=== PATIENT | female | born 1960 | race Caucasian/White ===

== ENCOUNTER 2019-11-27 11:54 | Emergency (ER) | payer MEDICAID, OTHER ==
[~2019-11-27] VITALS: Ht 157.5 cm; Wt 45.0 kg
[~2019-11-27 11:54] MED LIST: ASPI-1265 PO; DEXL60CA3 PO; EST1T PO; IBUP-1984 PO; ONDA4TAB9 PO; ONDA8TAB9 PO; PRO2.5T PO
[2019-11-27 12:26] LABS: BASOPHILS # (AUTO) 0.1 X10'3 (0-0.2); BASOPHILS % (AUTO) 0.7 % (0-1); EOSINOPHILS % (AUTO) 0 % (0-6); HEMATOCRIT 43.9 % (35.0-45.0); HEMOGLOBIN 14.8 g/dl (12.0-16.0); LYMPHOCYTES # (AUTO) 1.8 X10'3 (1.1-4.8); LYMPHOCYTES % (AUTO) 14.6 % (21-51); MEAN CORPUSCULAR HEMOGLOBIN 30.7 PG (27.0-31.0); MEAN CORPUSCULAR HGB CONC 33.6 g/dL (33.0-36.5); MEAN CORPUSCULAR VOLUME 91.4 FL (78-98); MEAN PLATELET VOLUME 7.4 FL (7.4-10.4); MONOCYTES # (AUTO) 0.7 X10'3 (0-0.9); NEUTROPHILS # (AUTO) 9.6 X10'3 (1.8-7.7); NEUTROPHILS % (AUTO) 78.7 % (42-75); PLATELET COUNT 448 X10'3 (140-440); RED CELL DISTRIBUTION WIDTH 13.3 % (11.5-14.5); WHITE BLOOD COUNT 12.2 X10'3 (4.5-11.0)
[2019-11-27 12:41] LABS: ALANINE AMINOTRANSFERASE 19 U/L (12-78); ALBUMIN 3.8 G/DL (3.4-5.0); ALBUMIN/GLOBULIN RATIO 0.9 (1.1-1.5); ALKALINE PHOSPHATASE 80 IU/L (46-116); ANION GAP 12 (8-16); ASPARTATE AMINO TRANSFERASE 19 U/L (10-37); BILIRUBIN,TOTAL 0.4 MG/DL (0.1-1.0); BLOOD UREA NITROGEN 15 MG/DL (7-18); BUN/CREATININE RATIO 15.5 (6.6-38.0); CALCIUM 10.1 MG/DL (8.5-10.1); CHLORIDE 100 MMOL/L (99-107); CREATININE 0.97 MG/DL (0.40-0.90); GLUCOSE 107 MG/DL (70-104); LIPASE 146 U/L (73-393); POTASSIUM 3.7 MMOL/L (3.5-5.1); SODIUM 138 MMOL/L (135-145); TOTAL CARBON DIOXIDE 25.9 MMOL/L (24-32); TOTAL PROTEIN 8.2 G/DL (6.4-8.2); eGFR 58 ML/MIN
[2019-11-27] MEDS ORDERED: pantoprazole 40 MG vial IV ONE (12:50)
[2019-11-27] MEDS ORDERED: ondansetron/PF 4mg/2ml inj IV ONE (12:50)
[2019-11-27] MEDS ORDERED: normal saline 1000ML IV soln IVB ONE (12:50)
[2019-11-27 15:04] LABS: CLARITY,URINE CLEAR (Clear); COLOR,URINE STRAW (Yellow); GLUCOSE, URINE NEGATIVE (Neg); KETONES,URINE 15 mg/dl (Neg); LEUKOCYTE ESTERASE ,URINE NEGATIVE (Neg); NITRITES, URINE NEGATIVE (Neg); OCCULT BLOOD,URINE MODERATE (Neg); PH,URINE 7.5 (4.8-8.0); PROTEIN,URINE NEGATIVE (Neg); UROBILINOGEN,URINE 0.2 E.U/dL (0.2-1.0)
[2019-11-27 15:07] LABS: UA COLLECTION TYPE CLN CATCH MIDSTREAM
[2019-11-27 15:14] LABS: BACTERIA,URINE FEW /HPF (Neg); MUCUS STRANDS NONE SEEN /LPF (Neg); SQUAMOUS EPITHELIAL CELL,UR FEW /LPF (FEW); WBC,URINE 0-4 /HPF (0-4)
[2019-11-27 15:57] VITALS: BP 130/82
[2019-11-27] MEDS ORDERED: ONDA4TAB6 PO (16:27)
[2019-11-27] MEDS ORDERED: FAMO10TA41 PO (16:27)
[2019-11-27] MEDS ORDERED: MISO100T47 PO (16:27)
== END 2019-11-27 17:22 | disposition home or self-care (01) ==
LOC: ER 11:55
DX: R10.12 Left upper quadrant pain (principal); R11.2 Nausea with vomiting, unspecified; K21.9 Gastro-esophageal reflux disease without esophagitis; F41.9 Anxiety disorder, unspecified; F32.9 Major depressive disorder, single episode, unspecified; F17.200 Nicotine dependence, unspecified, uncomplicated; Z98.890 Other specified postprocedural states; Z88.2 Allergy status to sulfonamides; Z79.82 Long term (current) use of aspirin; Z79.899 Other long term (current) drug therapy
CPT/HCPCS: 36415; 71045; 74176; 80053; 81001; 83690; 85025; 93005; 96361; 96374; 96375; 99285; C9113; J2405; J7030

== ENCOUNTER 2021-08-16 11:11 | Inpatient (IN) | payer MEDICAID ==
[~2021-08-16] VITALS: Ht 157.5 cm; Wt 49.0 kg
[~2021-08-16 11:11] MED LIST changes: +FAMO10TA41 PO; +MISO100T42 PO; +ONDA4TAB6 PO
[2021-08-16] MEDS ORDERED: normal saline 1000ML IV soln IV ONE (11:35)
--- NOTE | 2021-08-16 11:36 | NUR ---
PATIENT TESTED POSITIVE FOR COVID ON 08/13/21 AT PCP OFFICE. PATIENT WAS PRESCRIBED PREDNISONE 20 MG X 5 DAYS, GUIFEN WITH CODEINE SYRUP, AND TESSALON PERLES.
[2021-08-16 12:29] LABS: BASOPHILS % (AUTO) 0.1 % (0-1); EOSINOPHILS % (AUTO) 0 % (0-6); HEMATOCRIT 42.1 % (35.0-45.0); HEMOGLOBIN 14.4 g/dl (12.0-16.0); LYMPHOCYTES # (AUTO) 0.1 X10'3 (1.1-4.8); LYMPHOCYTES % (AUTO) 1.2 % (21-51); MEAN CORPUSCULAR HEMOGLOBIN 31.6 PG (27.0-31.0); MEAN CORPUSCULAR HGB CONC 34.2 g/dL (33.0-36.5); MEAN CORPUSCULAR VOLUME 92.2 FL (78-98); MEAN PLATELET VOLUME 8.3 FL (7.4-10.4); MONOCYTES # (AUTO) 0.5 X10'3 (0-0.9); MONOCYTES % (AUTO) 3.9 % (2-12); NEUTROPHILS # (AUTO) 11.6 X10'3 (1.8-7.7); NEUTROPHILS % (AUTO) 94.8 % (42-75); PLATELET COUNT 183 X10'3 (140-440); RED BLOOD COUNT 4.56 X10'6 (4.20-5.60); RED CELL DISTRIBUTION WIDTH 13.3 % (11.5-14.5); WHITE BLOOD COUNT 12.2 X10'3 (4.5-11.0)
--- NOTE | 2021-08-16 12:30 | NUR ---
PATIENT RESTING IN WC WITH FAMILY PRESENT. O2 SAT 93-94% ON ROOM AIR. IV FLUIDS INFUSING WELL.
[2021-08-16 12:43] LABS: D-DIMER 0.31 MG/L FEU (0-0.50)
[2021-08-16 12:46] LABS: ALANINE AMINOTRANSFERASE 23 U/L (12-78); ALBUMIN/GLOBULIN RATIO 0.6 (1.1-1.5); ALKALINE PHOSPHATASE 71 IU/L (46-116); ANION GAP 10 (8-16); ASPARTATE AMINO TRANSFERASE 22 U/L (10-37); BILIRUBIN,TOTAL 0.5 MG/DL (0.1-1.0); BLOOD UREA NITROGEN 9 MG/DL (7-18); BUN/CREATININE RATIO 14.3 (6.6-38.0); CALCIUM 9.2 MG/DL (8.5-10.1); CHLORIDE 94 MMOL/L (99-107); CREATININE 0.63 MG/DL (0.40-0.90); GLUCOSE 119 MG/DL (70-104); POTASSIUM 4.3 MMOL/L (3.5-5.1); SODIUM 129 MMOL/L (135-145); TOTAL CARBON DIOXIDE 25.5 MMOL/L (24-32); TOTAL PROTEIN 7.8 G/DL (6.4-8.2); eGFR > 90 ML/MIN
[2021-08-16] MEDS ORDERED: normal saline 1000ML IV soln IVB ONE (13:20)
[2021-08-16] MEDS ORDERED: GUAI120L55 PO (14:05)
[2021-08-16] MEDS ORDERED: CALC-1276 PO (14:05)
[2021-08-16] MEDS ORDERED: PRED20TA PO (14:05)
[2021-08-16] MEDS ORDERED: BENZ-49 PO (14:05)
[2021-08-16] MEDS ORDERED: ALBU18HF2 PO (14:06)
[2021-08-16] MEDS ORDERED: ESCI20TA39 PO (14:06)
[2021-08-16] MEDS: dexamethasone sod phosphate 10mg/ml inj IV STA ×2 (14:16→16:00)
[2021-08-16] MEDS ORDERED: potassium Cl 20 mEq SR tablet PO PRN ×2 (15:10)
[2021-08-16] MEDS ORDERED: magnesium Cl slow-release 64mg tablet PO PRN (15:10)
[2021-08-16] MEDS ORDERED: magnesium 2GM in 50ml NS 50 ML IV PRN (15:10)
[2021-08-16] MEDS ORDERED: acetaminophen 325mg tablet PO PRN ×2 (15:10→17:40)
[2021-08-16] MEDS ORDERED: potassium Cl 40MEQ/1/2NS 520ml 520 ML IV PRN ×2 (15:10)
[2021-08-16] MEDS ORDERED: ondansetron/PF 4mg/2ml inj IV PRN (15:10)
[2021-08-16] MEDS ORDERED: magnesium 4gm in 100ml NS 100 ML IV PRN (15:10)
[2021-08-16 15:33] LABS: LACTATE DEHYDROGENASE 225 U/L (81-234)
--- NOTE | 2021-08-16 16:13 | NUR ---
received report from Kanchan CARNES and assumed care of pt. Pt A&O x4. No s/s of distress noted.
[2021-08-16 16:38] VITALS: BP 124/68
[2021-08-16] MEDS: normal saline 1000ml 1,000 ML IV SCH (18:00)
--- NOTE | 2021-08-16 18:41 | NUR ---
Patient in room ORTHO 4013. I have received report from Jaja CARNES and had the opportunity to ask questions and assume patient care.
[2021-08-16] MEDS: K and/or MAG REPLACEMENT MC SCH (19:14)
[2021-08-16] MEDS ORDERED: temazepam 15mg capsule PO PRN (21:00)
[2021-08-16 22:00] VITALS: BP 109/63
[2021-08-17 02:16] VITALS: BP 102/66
[2021-08-17] MEDS: normal saline 1000ml 1,000 ML IV SCH ×2 (04:44→11:54)
--- NOTE | 2021-08-17 06:11 | NUR ---
Problems reprioritized. Patient report given, questions answered & plan of care reviewed with Lakisha CARNES.
[2021-08-17 06:22] VITALS: BP 121/79
--- NOTE | 2021-08-17 06:33 | NUR ---
Patient in room ORTHO 4013. I have received report from Bri CARNES and had the opportunity to ask questions and assume patient care.
--- NOTE | 2021-08-17 07:27 | NUR ---
PAGER ID: [phone] MESSAGE: [phone], Alma please address med rec. Also not on any anticoagulants, COVID positive. thanks [email or web address] [id number]
[2021-08-17] MEDS ORDERED: enoxaparin 40mg/0.4ml syringe SUBCUT ONE (07:35)
[2021-08-17] MEDS: K and/or MAG REPLACEMENT MC SCH (08:00)
[2021-08-17] MEDS ORDERED: DEXAMETHASONE 6 MG TABLET PO SCH (08:00)
[2021-08-17 08:15] LABS: BASOPHILS % (AUTO) 0.1 % (0-1); EOSINOPHILS % (AUTO) 0 % (0-6); HEMATOCRIT 40.2 % (35.0-45.0); HEMOGLOBIN 13.7 g/dl (12.0-16.0); LYMPHOCYTES # (AUTO) 0.2 X10'3 (1.1-4.8); LYMPHOCYTES % (AUTO) 2.6 % (21-51); MEAN CORPUSCULAR HGB CONC 34.2 g/dL (33.0-36.5); MEAN CORPUSCULAR VOLUME 93.7 FL (78-98); MEAN PLATELET VOLUME 8.5 FL (7.4-10.4); MONOCYTES # (AUTO) 0.5 X10'3 (0-0.9); MONOCYTES % (AUTO) 5.5 % (2-12); NEUTROPHILS # (AUTO) 8.3 X10'3 (1.8-7.7); NEUTROPHILS % (AUTO) 91.8 % (42-75); PLATELET COUNT 170 X10'3 (140-440); RED BLOOD COUNT 4.28 X10'6 (4.20-5.60); RED CELL DISTRIBUTION WIDTH 13.4 % (11.5-14.5); WHITE BLOOD COUNT 9.1 X10'3 (4.5-11.0)
[2021-08-17 08:17] LABS: D-DIMER 0.49 MG/L FEU (0-0.50)
[2021-08-17 08:36] LABS: ALBUMIN 2.4 G/DL (3.4-5.0); ANION GAP 10 (8-16); BLOOD UREA NITROGEN 10 MG/DL (7-18); CALCIUM 8.4 MG/DL (8.5-10.1); CHLORIDE 107 MMOL/L (99-107); GLUCOSE 123 MG/DL (70-104); MAGNESIUM 2.1 MG/DL (1.5-2.4); POTASSIUM 3.6 MMOL/L (3.5-5.1); SODIUM 142 MMOL/L (135-145); TOTAL CARBON DIOXIDE 24.8 MMOL/L (24-32); eGFR > 90 ML/MIN
--- NOTE | 2021-08-17 09:00 | NUR ---
O2 Sat at rest on room air:__86_% If below 89%: Recovery O2 Sat at rest on _3__LPM:_95__%:___% via nasal cannula (mask/nasal cannula, etc..) No further documentation is necessary. If O2 Sat did not drop below 89% on room air,ambulate patient on room air. O2 Sat while ambulating on room air:___% Recovery O2 Sat while ambulating on ___LPM:___% No further documentation is necessary. If patient does not drop below 89% while ambulating, he/she does not qualify for home O2.
--- NOTE | 2021-08-17 09:04 | NUR ---
Gave patient IS and Flutter and instructed on use.
[2021-08-17] MEDS ORDERED: DEXA6TAB PO (09:07)
--- NOTE | 2021-08-17 10:12 | NUR ---
PAGER ID: [phone] MESSAGE: [phone], Alma patient lives alone, and daughter now is positive with covid. Home health maybe? [email or web address] [phone]
[2021-08-17 10:22] VITALS: BP 109/60
--- NOTE | 2021-08-17 11:36 | NUR ---
Malnutrition consult: Pt reports 14-23 lb wt loss with decreased appetite per malnutrition risk screen with RN. Per ED report symptoms of SOB, body aches, and decreased appetite started a week [employer]. Most recent scaled wt hx in EMR is 46.9 kg taken 06/08/17, though more recently with reported wt h/o 45 kg 11/27/2019. Current documented wt is +4 kg from reported wt hx. Pt on a regular diet documented with 25% PO intake x 2 meals. Pt with no documented significant decrease in muscle strength or edema. Pt currently lacks a minimum of two criteria for malnutrition. Will continue to follow closely and further monitor qualifying criteria. Addendum: 08/17/21 at [address] Amended: Links added.
--- NOTE | 2021-08-17 14:15 | NUR ---
Patient discharged to home in stable condition, 20 gauge iv removed from left ac, cannula intact no s/s of phlebitis. Gave discharge instructions to patient including isolation time, where to buy a pulse oximeter, medications, and importance of staying hydrated and eating appropriately. Patient was set up with home oxygen by maikel and home health is to be arranged with case management. Left in private vehicle with daughter with no complications.
[2021-08-18] MEDS ORDERED: enoxaparin 40mg/0.4ml syringe SUBCUT SCH (20:00)
== END 2021-08-17 14:05 | disposition home health service (06) | DRG 137 ==
LOC: ER 11:13 → ED HOLD 15:13 → ORTHO 4S 16:40
PROVIDERS: ADMIT Internal Medicine; ATTEND Internal Medicine
DX: U07.1 COVID-19 (principal); J96.00 Acute respiratory failure, unspecified whether with hypoxia or hypercapnia; J12.82 Pneumonia due to coronavirus disease 2019; F32.A Depression, unspecified; F41.9 Anxiety disorder, unspecified; K21.9 Gastro-esophageal reflux disease without esophagitis; E87.1 Hypo-osmolality and hyponatremia; Z87.891 Personal history of nicotine dependence; Z79.1 Long term (current) use of non-steroidal anti-inflammatories (NSAID); Z79.899 Other long term (current) drug therapy; Z88.2 Allergy status to sulfonamides; Z87.01 Personal history of pneumonia (recurrent)
CPT/HCPCS: 36415; 71045; 80048; 80053; 83605; 83615; 83735; 84145; 85025; 85379; 86140; 87040; 87081; 93005; 96374; 99285; G0378; J1100; J1650; J7030; J8540

== ENCOUNTER 2022-04-14 11:03 | Emergency (ER) | payer MEDICAID ==
[~2022-04-14] VITALS: Ht 157.5 cm; Wt 46.8 kg
[~2022-04-14 11:03] MED LIST changes: +ALBU18HF2 PO; -ASPI-1265 PO; +BENZ-49 PO; +CALC-1276 PO; +DEXA6TAB PO; -DEXL60CA3 PO; +ESCI20TA39 PO; -EST1T PO; -FAMO10TA41 PO; +GUAI120L55 PO; -IBUP-1984 PO; -MISO100T42 PO; -ONDA4TAB6 PO; -ONDA4TAB9 PO; -ONDA8TAB9 PO; -PRO2.5T PO
[2022-04-14] MEDS ORDERED: normal saline 1000ML IV soln IVB ONE (12:05)
[2022-04-14] MEDS ORDERED: morphine 4 MG/ML inj SYRINge IV PRN (12:05)
[2022-04-14] MEDS ORDERED: ondansetron/PF 4mg/2ml inj IV ONE (12:05)
[2022-04-14 12:32] LABS: BASOPHILS # (AUTO) 0.1 X10'3 (0-0.2); BASOPHILS % (AUTO) 0.6 % (0-1); EOSINOPHILS % (AUTO) 0.3 % (0-6); HEMATOCRIT 45.8 % (35.0-45.0); HEMOGLOBIN 15.8 g/dl (12.0-16.0); LYMPHOCYTES # (AUTO) 2.3 X10'3 (1.1-4.8); MEAN CORPUSCULAR HEMOGLOBIN 32.2 PG (27.0-31.0); MEAN CORPUSCULAR HGB CONC 34.5 g/dL (33.0-36.5); MEAN CORPUSCULAR VOLUME 93.2 FL (78-98); MONOCYTES # (AUTO) 0.6 X10'3 (0-0.9); MONOCYTES % (AUTO) 6.6 % (2-12); NEUTROPHILS # (AUTO) 6.5 X10'3 (1.8-7.7); NEUTROPHILS % (AUTO) 68.5 % (42-75); PLATELET COUNT 405 X10'3 (140-440); RED BLOOD COUNT 4.92 X10'6 (4.20-5.60); RED CELL DISTRIBUTION WIDTH 14.1 % (11.5-14.5); WHITE BLOOD COUNT 9.5 X10'3 (4.5-11.0)
[2022-04-14 12:42] LABS: ALANINE AMINOTRANSFERASE 33 U/L (12-78); ALBUMIN 4.2 G/DL (3.4-5.0); ALKALINE PHOSPHATASE 70 IU/L (46-116); ANION GAP 10 (8-16); ASPARTATE AMINO TRANSFERASE 25 U/L (10-37); BILIRUBIN,TOTAL 0.8 MG/DL (0.1-1.0); BLOOD UREA NITROGEN 13 MG/DL (7-18); BUN/CREATININE RATIO 15.3 (6.6-38.0); CALCIUM 10.3 MG/DL (8.5-10.1); CHLORIDE 102 MMOL/L (99-107); CREATININE 0.85 MG/DL (0.40-0.90); GLUCOSE 99 MG/DL (70-104); LIPASE 110 U/L (73-393); SODIUM 139 MMOL/L (135-145); TOTAL CARBON DIOXIDE 26.7 MMOL/L (24-32); TOTAL PROTEIN 8.5 G/DL (6.4-8.2); eGFR 67 ML/MIN
[2022-04-14 14:47] LABS: UA COLLECTION TYPE CLN CATCH MIDSTREAM
[2022-04-14 14:48] LABS: CLARITY,URINE CLEAR (Clear); COLOR,URINE YELLOW (Yellow); GLUCOSE, URINE NEGATIVE (Neg); KETONES,URINE 15 mg/dl (Neg); LEUKOCYTE ESTERASE ,URINE SMALL (Neg); NITRITES, URINE NEGATIVE (Neg); OCCULT BLOOD,URINE MODERATE (Neg); PH,URINE 6.5 (4.8-8.0); PROTEIN,URINE 30 mg/dl (Neg); UROBILINOGEN,URINE 0.2 E.U/dL (0.2-1.0)
[2022-04-14 14:53] LABS: BACTERIA,URINE FEW /HPF (Neg); SQUAMOUS EPITHELIAL CELL,UR MODERATE /LPF (FEW); WBC,URINE 0-4 /HPF (0-4)
[2022-04-14] MEDS ORDERED: ONDA4TAB12 PO (15:38)
[2022-04-14 16:34] VITALS: BP 141/83
== END 2022-04-14 16:37 | disposition home or self-care (01) ==
LOC: ER 11:03
DX: A08.4 Viral intestinal infection, unspecified (principal); Z20.822 Contact with and (suspected) exposure to COVID-19; K21.9 Gastro-esophageal reflux disease without esophagitis; Z88.8 Allergy status to other drugs, medicaments and biological substances
CPT/HCPCS: 36415; 71045; 74176; 76700; 80053; 81001; 83690; 85025; 87088; 87502; 87503; 87635; 96361; 96374; 96375; 99285; C9803; J2270; J2405; J7030

== ENCOUNTER 2023-08-26 13:53 | Emergency (ER) | payer MEDICAID ==
[~2023-08-26] VITALS: Ht 157.5 cm; Wt 58.2 kg
[~2023-08-26 13:53] MED LIST changes: +BENZ-111 PO; -BENZ-49 PO; +ONDA4TAB12 PO
[2023-08-26] MEDS ORDERED: ketorolac trometh. 30mg/ml inj. IM ONE (14:30)
[2023-08-26 16:30] VITALS: BP 116/61; PULSE 73; RESP 16; TEMP 98.9; O2SAT 96
== END 2023-08-26 16:34 | disposition home or self-care (01) ==
LOC: ER 13:54
DX: S80.02XA Contusion of left knee, initial encounter (principal); K21.9 Gastro-esophageal reflux disease without esophagitis; F41.9 Anxiety disorder, unspecified; F32.9 Major depressive disorder, single episode, unspecified; Z98.890 Other specified postprocedural states; Z88.8 Allergy status to other drugs, medicaments and biological substances; Z88.6 Allergy status to analgesic agent; Z79.899 Other long term (current) drug therapy; W18.39XA Other fall on same level, initial encounter; Y93.89 Activity, other specified; Y92.89 Other specified places as the place of occurrence of the external cause; Y99.8 Other external cause status
CPT/HCPCS: 73564; 96372; 99284; J1885

== ENCOUNTER 2025-05-25 09:33 | Emergency (ER) | payer MEDICARE, MEDICAID ==
[~2025-05-25] VITALS: Ht 157.5 cm; Wt 53.2 kg
[~2025-05-25 09:33] MED LIST changes: +ONDA-243 PO; -ONDA4TAB12 PO
--- NOTE | 2025-05-25 11:44 | Physician Documentation ---
History of Present Illness ~ Chief Complaint: Back Pain Stated Complaint: BACK PAIN Time Seen by MD: 11:36 Primary Medical Doctor: ROBERTS CHAPELG[facility] PERE[facility] Mode of Arrival: EMS HPI 65-year-old female, history of COPD, presenting with right low back pain and flank pain, and abdominal pain She tells me that over the past several days she has been having pain in her right lower back. She states it radiates down into her hip. It is worse with movements. She has been taking Tylenol without much relief. She also reports it feels like her entire abdomen is very bloated and uncomfortable. She states it is hard to put on her pants because her abdomen is so distended. She reports pain in her right lower abdomen as well as in her upper abdomen across the entire top. Reports sweats where she soaks her body with sweat She went to urgent Care, and they were concerned she may be having a heart attack so they sent her to the ER She does report a history of emphysema but denies any significant shortness of breath at this time. Medication Reconciliation Allergies: Coded Allergies: silver sulfadiazine (Verified Allergy, Severe, SWELLING, 05/25/25) tramadol (Verified Allergy, Severe, EMESIS, 05/25/25) Uncoded Allergies: UNKNOWN ANTIBIOTIC (Allergy, Severe, ITCH, 08/26/23) Scheduled Calcium Carbonate/Vitamin D3 (Calcium 600 mg-Vit D3 10Mcg Tb), 1 TAB PO DAILY, (Reported) Dexamethasone (Dexamethasone), 6 MG PO DAILY Escitalopram Oxalate (Escitalopram Oxalate), 1 TAB PO DAILY, (Reported) Scheduled PRN Albuterol Sulfate (Ventolin Hfa), 2 PUFFS PO Q4H PRN for SOB or wheezing, (Reported) Benzonatate (Benzonatate), 1 CAP PO TID PRN for cough, (Reported) Guaifenesin/Codeine Phosphate (Codeine-Guaifen 10-100 mg/5 ml), 10 ML PO Q4H PRN for cough, (Reported) ONDANSETRON ODT 4mg tablet (Ondansetron Odt), 1 TABLET PO Q6H PRN for nausea/vomiting Past Medical History Past Medical History: Bronchitis, Pneumonia, GERD, Inflammatory Bowel Dz, Anxiety, Depression Past Surgical History: orthopedic surgeries Alcohol Use: Rarely Drug Use: none Lives with: Family Lives In: Home Review of Systems Constitutional: Reports: diaphoresis, fever Gastrointestinal: Reports: abdominal pain Musculoskeletal: Reports: back pain Physical Exam Physical Exam Vital Signs: Heart Rate: 82, Respiratory Rate: 17, BP: 133/68, Pulse Oximetry: 98, Weight: 53.180 Oxygen Flow Rate: 0 Physical Exam General: This is an anxious and uncomfortable appearing older woman HEENT: Atraumatic, oropharynx appears dry Heart: Regular rate and rhythm, normal-appearing peripheral perfusion Lungs: Diminished breath sounds bilateral, normal work of breathing, faint expiratory wheezes diffusely Abdomen: Soft, mild discomfort on palpation across the upper abdomen as well as in the right lower abdomen, she does appear mildly distended Back: She has reproducible tenderness on palpation of the muscles of the right paralumbar region and SI joint region, with no overlying skin changes Extremities: Warm and well-perfused Neuro: Alert and oriented Psychiatric: Anxious and is tremulous, but is cooperative with exam Progress Results/Orders Results/Orders Orders - ASIA EWING MD Chest,Two Views (05/25/25 12:23) Ct Abdomen Pelvis (05/25/25 12:55) Completed Orders - ASIA EWING MD Cbc/Diff (05/25/25 11:28) BMP (05/25/25 11:28) Lipase (05/25/25 11:28) CMP (05/25/25 11:28) Hs Troponin I W Calculations (05/25/25 12:23) Ketorolac Trometh 15mg/Ml Vial (Toradol (05/25/25 12:25) Chest,Two Views (05/25/25 12:23) Ct Abdomen Pelvis (05/25/25 12:55) Lidocaine 5% Patch (Lidoderm 5% Patch) (05/25/25 12:25) Electrocardiogram (05/25/25 12:25) PBNP (05/25/25 11:45) Iohexol 300mg/Ml 100ml Inj. (Omnipaque-3 (05/25/25 12:42) Ua W/Microscopic, Cult If Ind (05/25/25 12:42) Medications Received in ER Medications (Trade) Dose Ordered Sig/Cate Route PRN Reason Start Time Stop Time Status Last Admin Dose Admin (Toradol injection) 15 mg ONCE ONCE IV 05/25/25 12:25 05/25/25 12:26 DC 05/25/25 12:45 15 MG (Lidoderm 5% Patch) 1 patch ONCE ONCE TP 05/25/25 12:25 05/25/25 12:26 DC 05/25/25 12:45 1 PATCH Vital Signs 05/25/25 05/25/25 05/25/25 05/25/25 09:44 09:51 10:18 11:18 Pulse 72 83 82 Resp 12 12 17 B/P (MAP) 147/83 127/70 (89) 133/68 (89) Pulse Ox 100 100 98 O2 Flow Rate 0 0 0 05/25/25 05/25/25 12:00 16:56 Pulse 77 90 Resp 17 B/P (MAP) 132/79 (96) 133/85 (101) Pulse Ox 97 O2 Flow Rate 0 Laboratory Tests Test 05/25/25 11:45 05/25/25 12:31 05/25/25 12:42 White Blood Count 8.0 Red Blood Count 4.65 Hemoglobin 14.4 Hematocrit 43.3 Mean Corpuscular Volume 93.2 Mean Corpuscular Hemoglobin 30.9 Mean Corpuscular Hemoglobin Concent 33.1 Red Cell Distribution Width 13.4 Platelet Count 333 Mean Platelet Volume 7.0 L Neutrophils (%) (Auto) 73.6 Lymphocytes (%) (Auto) 20.1 L Monocytes (%) (Auto) 5.5 Eosinophils (%) (Auto) 0.2 Basophils (%) (Auto) 0.6 Neutrophils # (Auto) 5.9 Lymphocytes # (Auto) 1.6 Monocytes # (Auto) 0.4 Eosinophils # (Auto) 0.0 Basophils # (Auto) 0.0 CBC Comment Sodium Level 136 Potassium Level 3.5 Chloride Level 101 Carbon Dioxide Level 23.6 L Anion Gap 11 Blood Urea Nitrogen 11 Creatinine 0.95 H Estimated GFR/1.73 m2 59 BUN/Creatinine Ratio 11.6 Glucose Level 104 Calcium Level 9.9 Total Bilirubin 0.6 Aspartate Amino Transf (AST/SGOT) 21 Alanine Aminotransferase (ALT/SGPT) 24 Alkaline Phosphatase 74 Pro-B-Type Natriuretic Peptide < 30 Total Protein 8.1 Albumin 4.1 Globulin 4.0 Albumin/Globulin Ratio 1.0 L Lipase 30 Chemistry Comments Troponin I High Sensitivity 5 Urine Specimen Description Cln catch midstream Urine Color Yellow Urine Clarity Cloudy Urine pH 8.0 Urine Specific Bascom 1.015 Urine Protein Negative Urine Glucose (UA) Negative Urine Ketones 40 H Urine Occult Blood Trace-intact Urine Nitrite Negative Urine Bilirubin Negative Urine Urobilinogen 0.2 Urine Leukocyte Esterase Negative Urine RBC 3-10 Urine WBC 0-4 Urine Squamous Epithelial Cells Few Urine Amorphous Phosphates 4+ Urine Bacteria 1+ Urine Culture Indicated Not ind Volume Urine Centrifuged 10 ml Urine Comment EKG/XRAY/CT/US/VASC/MRI Chest X-Ray : Additional Comments I personally interpreted the x-ray, and it shows: No focal consolidation, mediastinal widening, or pulmonary edema CT : Impression I personally interpreted the CT scan, and this shows no inflammatory process, bowel obstruction, or mass Medical Decision Making Differential Diagnosis The patient presents with multiple complaints including back pain, abdominal pa in, and other. On exam she has findings that seem most consistent with a low back muscle strain. Her workup is otherwise unremarkable including no evidence of dangerous lung problem, dangerous intra-abdominal process, or spinal fracture. No evidence of urinary tract infection or kidney infection. On re- evaluation, she was feeling somewhat better. I explained the results of all of her testing and she felt comfortable going home with symptomatic treatment for a low back strain. Departure Time of Disposition: 17:09 Disposition: 01 HOME / SELF CARE / HOMELESS Impression: Primary Impression: Strain of lumbar region Condition: Improved Discharge Instructions: Lumbosacral Strain Referrals: NO PRIMARY CARE PROVIDER (PCP) Education Educated: Patient Educated regarding: diagnosis, treatment, need for follow up Signature Scribe Signature: na Attestation: ASIA Barney MD May 25, 2025 11:44
[2025-05-25 11:53] LABS: MEAN PLATELET VOLUME 7.0 FL (7.4-10.4); RED CELL DISTRIBUTION WIDTH 13.4 % (11.5-14.5)
--- NOTE | 2025-05-25 12:35 | ELECTROCARDIOGRAPH REPORT ---
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
[2025-05-25] MEDS ORDERED: iohexol 300mg/ml 100ml inj. ONE (12:42)
[2025-05-25] MEDS: ketorolac trometh 15mg/ml vial 15 MG/ML ML IV ONE (12:45)
[2025-05-25 12:52] LABS: CREATININE 0.95 MG/DL (0.40-0.90); PRO BRAIN NATRIURETIC PEPTIDE < 30 PG/ML (0-125); TOTAL CARBON DIOXIDE 23.6 MMOL/L (24-32); eCRCL 45 ML/MIN; eGFR 59 ML/MIN
[2025-05-25 12:59] LABS: LEUKOCYTE ESTERASE ,URINE NEGATIVE (Neg); NITRITES, URINE NEGATIVE (Neg); OCCULT BLOOD,URINE TRACE-INTACT (Neg)
[2025-05-25 13:02] LABS: UA COLLECTION TYPE CLN CATCH MIDSTREAM
[2025-05-25 13:15] LABS: AMORPHOUS PHOSPHATES 4+; SQUAMOUS EPITHELIAL CELL,UR FEW /LPF (FEW)
--- NOTE | 2025-05-25 13:54 | RADIOLOGY REPORT ---
CLINICAL INFORMATION: Abdominal pain including upper abdominal and right flank. TECHNIQUE: Axial CT images of the abdomen and pelvis were obtained after the uneventful administrati on of 100 mL Omnipaque 300 IV contrast. Coronal and sagittal reformatted images were obtained, review ed, and stored. All CT scans at this medical facility are performed using dose modulation techniques as appropriate to a performed exam including the following: Automated exposure control was utilized; adjustment of the MA and/or KV according to patient size; and use of iterative reconstruction technOne to the World ue. CTDIvol = 7.51 mGy DLP = 342.29 mGy-cm COMPARISON: ULTRASOUND OF ABDOMEN on DOS: 04/14/22, CT ABDOMEN PELVIS on DOS: 04/14/22, CT ABDOMEN PELV IS on DOS: 11/27/19 FINDINGS: Lung bases: Lung bases are clear. Liver: Hepatic steatosis. Biliary: No calcified gallstones or biliary ductal dilatation. Spleen: Unremarkable. Pancreas: Unremarkable. No inflammatory changes, ductal dilatation, or mass identified. Adrenal glands: Unremarkable. No mass. Kidneys: No hydronephrosis or mass. Aorta/Vascular: Scattered atherosclerotic calcification. No abdominal aortic aneurysm. Retroperitoneum: No mass or lymphadenopathy. Bowel/mesentery: No small bowel obstruction. No free air or free fluid. Appendix is visualized and ap pears unremarkable. Scattered colonic diverticula without adjacent inflammatory changes to suggest d iverticulitis. Pelvic organs: Prominence of the adnexal veins bilaterally, left greater than right. Bladder: Unremarkable. No mass. Abdominal wall: No mass or hernia. Bones: No acute fracture or focal intraosseous lesion. IMPRESSION: 1. Hepatic steatosis. 2. Scattered colonic diverticula without adjacent inflammatory changes to suggest diverticulitis. 3. Prominence of the adnexal veins bilaterally, left greater than right, may be seen with pelvic carlos estion syndrome in the appropriate clinical setting. 4. Additional findings as described above.
[2025-05-25 16:56] VITALS: BP 133/85; PULSE 90; RESP 17; O2SAT 97
--- NOTE | 2025-05-26 07:48 | RADIOLOGY REPORT ---
CLINICAL INFORMATION: Shortness of breath, lower chest pain. TECHNIQUE: Frontal and lateral chest radiographs were obtained. COMPARISON: CHEST,SINGLE VIEW on DOS: 04/14/22, CHEST,SINGLE VIEW on DOS: 08/16/21, CHEST,SINGLE VIEW on DOS: 11/27/19 FINDINGS: Lungs: Hyperaeration of the lungs with flattening of the diaphragm suggesting emphysematous changes. No focal consolidation, pneumothorax, or pleural effusion. Cardiac: Heart size is within normal limits. Pulmonary vasculature: Unremarkable Mediastinum/july: [id number] atherosclerotic calcification of the aortic arch. Bones: No evidence of acute osseous abnormality. Other: No other significant finding. IMPRESSION: 1. No evidence of acute disease in the chest. 2. Findings suggesting emphysematous changes as described above. Correlate with clinical findings.
== END 2025-05-25 17:30 | disposition home or self-care (01) ==
LOC: ER 09:34
DX: S39.012A Strain of muscle, fascia and tendon of lower back, initial encounter (principal); R14.0 Abdominal distension (gaseous); J43.9 Emphysema, unspecified; R06.02 Shortness of breath; K21.9 Gastro-esophageal reflux disease without esophagitis; Z87.01 Personal history of pneumonia (recurrent); Z88.5 Allergy status to narcotic agent; X58.XXXA Exposure to other specified factors, initial encounter; Y93.89 Activity, other specified; Y92.89 Other specified places as the place of occurrence of the external cause; Y99.8 Other external cause status
CPT/HCPCS: 36415; 71046; 74177; 80053; 81001; 83690; 83880; 84484; 85025; 93005; 96374; 99285; J1885; Q9967